=== PATIENT | female | born 1940 | race Caucasian/White ===

== ENCOUNTER 2021-12-02 10:26 | Outpatient (CLI) | payer MEDICARE, SELFPAY ==
--- NOTE | ~2021-12-02 | XR_ITS ---
EXAMINATION: XR foot LT standing 2V EXAM DATE: 12/02/2021 11:41 INDICATION: Left foot osteoarthritis. TECHNIQUE: Frontal and lateral projections of the left foot standing. Correlation is made to [facility] foot same date. FINDINGS: There is mild left 1st MTP osteoarthritis and polyarticular interphalangeal osteoarthritis , mild and hallux valgus. 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 Small to moderate posterior calcan eal spur. There are no acute fractures or dislocations identified. There is no subcutaneous gas. Th e soft tissue is unremarkable. There are no radiopaque foreign bodies. IMPRESSION: 1. Mild left forefoot polyarticular osteoarthritis. 2. Mild hallux valgus. Reviewed, dictated and finalized at location G. S CYLINDER FLANGER
--- NOTE | ~2021-12-02 | XR_ITS ---
EXAMINATION: XR hip BI 2V w AP pelvis EXAM DATE: 12/02/2021 11:41 INDICATION: Unspecified osteoarthritis, unspecified site. TECHNIQUE: Each hip imaged independently (separate right and also left hip) 'frog leg' and frontal p rojections for interpretation. Frontal projection pelvis. There is no prior study for comparison. FINDINGS: No radiographic evidence of hip avascular necrosis. There is moderate symmetric bilateral hip primary osteoarthritis. There are no acute fractures or dislocations identified. There is no sub cutaneous gas. The soft tissue is unremarkable. There are no radiopaque foreign bodies. IMPRESSION: Moderate bilateral hip osteoarthritis. Reviewed, dictated and finalized at location G. ER DUMPER
--- NOTE | ~2021-12-02 | XR_ITS ---
EXAMINATION: XR lumbar spine min 4V EXAM DATE: 12/02/2021 11:41 INDICATION: Unspecified osteoarthritis. TECHNIQUE: Lumber spine frontal, lateral, bilateral oblique projections. Coned down frontal and lat eral L5-S1 lumbar projections for interpretation. There is no prior study for comparison. FINDINGS: There is no spondylolysis. There is mild to moderate abdominal aortic arterial sclerosis, n o evidence of aneurysm. Mild to moderate lumbar facet arthropathy, mild disc disease. There are no ac lower sioux fractures identified. Sacrum, sacroiliac joints, sacral arcuate lines are intact. There are cl cystectomy clips. IMPRESSION: Mild to moderate lumbar facet arthropathy, mild disc disease. Reviewed, dictated and finalized at location G. R HAMMER OPERATOR
--- NOTE | ~2021-12-02 | XR_ITS ---
EXAMINATION: XR foot RT standing 2V EXAM DATE: 12/02/2021 11:41 INDICATION: Right foot osteoarthritis. TECHNIQUE: Frontal and lateral projections of the right foot weightbearing. Correlation is made to Contralateral foot same date FINDINGS: Moderate-sized posterior, tiny inferior calcaneal spur. There is mild hallux valgus and mi ld to moderate 1st MTP primary osteoarthritis. There is mild polyarticular interphalangeal primary os teoarthritis. No periosteal reaction or band of sclerosis to suggest subacute stress fracture. There are no bony erosions identified. IMPRESSION: 1. Mild to moderate right 1st MTP osteoarthritis. 2. Mild hallux valgus. 3. Calcaneal spurs. Reviewed, dictated and finalized at location G. AL CEO
--- NOTE | ~2021-12-02 | XR_ITS ---
EXAMINATION: XR hand BI arthritis min 3V EXAM DATE: 12/02/2021 11:41 INDICATION: Bilateral hand osteoarthritis. TECHNIQUE: Right hand frontal, lateral and oblique projections obtained and reviewed. Left hand fron sola, lateral and oblique projections obtained and reviewed. Catchers projection of both hands. There is no prior study for comparison. FINDINGS: Right hand: There is mild polyarticular interphalangeal, minimal metacarpophalangeal primary osteoart hritis. There is mild 1st carpometacarpal primary osteoarthritis. There are no bony erosions identif ied. There are no acute fractures identified. Left hand: There is mild polyarticular metacarpophalangeal and interphalangeal primary osteoarthritis . There is mild to moderate 1st carpometacarpal primary osteoarthritis. There are no acute fractures identified. There are no bony erosions identified. IMPRESSION: Polyarticular osteoarthritis with the left 1st carpometacarpal joint most affected Reviewed, dictated and finalized at location G. STRIAL MANUFACTURING TECHNICIAN IMPRESSION: Polyarticular osteoarthritis with the left 1st carpometacarpal join t most affected
[2021-12-02 11:12] LABS: Hematocrit 36.2 % (37.0-47.0); Mean Corpuscular HGB Conc 33.1 g/dl (32-36); Mean Corpuscular Hemoglobin 32.1 pg (26-34); Mean Corpuscular Volume 96.8 fl (80-100); Mean Platelet Volume 9.9 fl (7.4-10.4); Platelet Count Result 256 k/mm3 (150-375); Red Blood Count 3.74 M/mm3 (4.2-5.4); Red Cell Distribution Width 12.5 % (11.5-14.5); White Blood Count 7.2 K/mm3 (4.5-10.0)
[2021-12-02 11:43] LABS: Alanine Aminotransferase 15 U/L (4-35); Alkaline Phosphatase 68 U/L (38-126); Anion Gap 6 mmol/L (8-16); Aspartate Amino Transferase 27 U/L (14-36); Bilirubin,Total 0.4 mg/dL (0.2-1.3); Blood Urea Nitrogen 20 mg/dL (7-17); CRP < 0.5 mg/dL (<1.0); Calcium 9.6 mg/dL (8.4-10.2); Carbon Dioxide 29 mmol/L (22-30); Chloride 106 mmol/L (98-107); Estimated Glomerular Filt Rate > 60; Glucose 102 mg/dL (65-110); Potassium 4.1 mmol/L (3.4-5.0); Sodium 141 mmol/L (137-145)
[2021-12-02 11:49] LABS: Rheumatoid Factor < 8.6 IU/ML (<12)
[2021-12-02 12:18] LABS: Erythrocyte Sedimentation Rate 19 mm/hr (0-20)
[2021-12-07 13:45] LABS: Anti Cyclic Citrullinated Pept <16 Units (<20)
== END 2021-12-02 10:27 | disposition home or self-care (01) ==
PROVIDERS: PCP Internal Medicine; Visit Provider Internal Medicine
DX: M51.36 Other intervertebral disc degeneration, lumbar region (principal); M16.0 Bilateral primary osteoarthritis of hip; M19.042 Primary osteoarthritis, left hand; M19.072 Primary osteoarthritis, left ankle and foot; M20.12 Hallux valgus (acquired), left foot; M19.071 Primary osteoarthritis, right ankle and foot; M20.11 Hallux valgus (acquired), right foot; M77.31 Calcaneal spur, right foot
CPT/HCPCS: 36415; 72110; 73130; 73521; 73620; 80053; 85027; 85652; 86038; 86039; 86140; 86200; 86430

== ENCOUNTER → 2022-03-03 01:34 | Outpatient (CLI) | payer MEDICARE, SELFPAY ==
[2022-03-03 16:55] LABS: SARS-CoV-2 RNA PCR Negative
== END ==
PROVIDERS: PCP Internal Medicine; Visit Provider Internal Medicine
DX: J01.90 Acute sinusitis, unspecified (principal); Z20.822 Contact with and (suspected) exposure to COVID-19
CPT/HCPCS: C9803; U0003; U0005

== ENCOUNTER 2023-02-20 14:50 | Outpatient (CLI) | payer MEDICARE, SELFPAY ==
[2023-02-20 15:03] LABS: Hematocrit 39.3 % (37.0-47.0); Mean Corpuscular HGB Conc 33.1 g/dl (32-36); Mean Corpuscular Hemoglobin 32.7 pg (26-34); Mean Platelet Volume 9.9 fl (7.4-10.4); Platelet Count Result 233 k/mm3 (150-375); Red Blood Count 3.97 M/mm3 (4.2-5.4); Red Cell Distribution Width 11.4 % (11.5-14.5); White Blood Count 6.6 K/mm3 (4.5-10.0)
[2023-02-20 17:07] LABS: Alanine Aminotransferase 33 U/L (6-35); Albumin Level 4.2 g/dL (3.5-5.1); Alkaline Phosphatase 53 U/L (38-126); Anion Gap 3 mmol/L (8-16); Aspartate Amino Transferase 34 U/L (14-36); Bilirubin,Total 0.5 mg/dL (0.2-1.3); Blood Urea Nitrogen 17 mg/dL (7-17); CRP < 0.5 mg/dL (<1.0); Calcium 9.2 mg/dL (8.4-10.2); Carbon Dioxide 33 mmol/L (22-30); Chloride 104 mmol/L (98-107); Estimated Glomerular Filt Rate 60; Glucose 102 mg/dL (65-110); Potassium 4.3 mmol/L (3.4-5.0); Sodium 140 mmol/L (137-145)
[2023-02-20 17:52] LABS: Erythrocyte Sedimentation Rate 15 mm/hr (0-20)
[2023-02-20 18:40] LABS: Appearance Urine Clear (Clear); Bacteria Urine None Seen /hpf; Bilirubin Urine Negative (Negative); Blood Urine Negative (Negative); Color Urine Dark Yellow (Yellow); Glucose Urine UA Negative (Negative); Hyaline Casts Urine Present /lpf; Ketones Urine Negative (Negative); Leukocyte Esterase Ur 1+ LEU/UL (Negative); Nitrate Urine Negative (Negative); Non Pathogenic Casts 0-2; Protein Urine Negative (Negative); RBC Urine 0-2 /hpf (0-2); Specific Grav Ur 1.017 (1.001-1.035); Squamous Epithelial Cell Urine None seen /hpf (Few); Urobilinogen Urine 0.2 mg/dL (<2.0); WBC Urine 0-5 /hpf; pH Urine 5.5 (5.0-9.0)
[2023-02-20 18:45] LABS: Add Urine Microscopic? YES
== END 2023-02-20 14:51 | disposition home or self-care (01) ==
LOC: ANHLAB 14:52
PROVIDERS: Internal Medicine; PCP Internal Medicine; Visit Provider Internal Medicine Hematology & Oncology
DX: M19.90 Unspecified osteoarthritis, unspecified site (principal); M06.9 Rheumatoid arthritis, unspecified
CPT/HCPCS: 36415; 80053; 81001; 85027; 85652; 86140

== ENCOUNTER 2023-11-19 15:35 | Emergency (ER) | payer MEDICARE, SELFPAY ==
--- NOTE | ~2023-11-19 | XR_ITS ---
EXAM: XR knee RT min 4V DATE: 11/19/2023 19:00 HISTORY: fall . COMPARISON: None available. FINDINGS: Decreased mineralization. No fracture or dislocation. No lytic or blastic lesion. Mild tri compartmental osteoarthritis. No erosion or periosteal change. Soft tissues within normal limits. Sma ll volume left knee joint fluid. IMPRESSION: No acute osseous finding in the right knee. Reviewed, dictated and finalized at location K. COORDINATOR
--- NOTE | ~2023-11-19 | CT_ITS ---
EXAMINATION: CT lumbar spine wo con DATE: 11/19/2023 16:37 INDICATION: Low back pain post fall TECHNIQUE: Computed tomography (CT) of the lumbar spine was performed without intravenous contrast. A utomated exposure control and iterative reconstruction technique were employed. The dose-length produ ct was 660.47 mGy-cm. COMPARISON: None FINDINGS: Alignment is normal. Vertebral body heights are normal. No fracture. Disc heights appear normal with small amount of dystrophic disc calcification at L3-L4 through L5-S1. No central canal stenosis. Mild disc bulges from L1-L2 through L5-S1 with no significant central canal stenosis. This does however c ontributing to mild bilateral neural foraminal stenosis at L3-L4, L4-5 and on the right at L5-S1. Mul tilevel lumbar facet osteoarthritis, severe on the left at L5-S1 and moderate on the right at this le mel. Mild facet osteoarthritis throughout the remainder of the more cephalad lumbar and lower thoraci c spine. Cholecystectomy clips the gallbladder fossa. There are couple low-attenuation cysts at left kidney and additional parapelvic cysts at both kidneys. Multiple sigmoid diverticula without adjacent inflammatory stranding to suggest diverticulitis. IMPRESSION: 1. Mild lumbar spondylosis with no acute osseous abnormality. Reviewed, dictated and finalized at location A. TH CENTER ASSISTANT
--- NOTE | ~2023-11-19 | CT_ITS ---
EXAMINATION: CT cervical spine wo con DATE: 11/19/2023 16:35 INDICATION: Frequent falls with headache and lack of coordination TECHNIQUE: Computed tomography (CT) of the cervical spine was performed without intravenous contrast. Automated exposure control and iterative reconstruction technique were employed. The dose-length pro duct was 256.28 mGy-cm. COMPARISON: None FINDINGS: Severe osteoarthritis at the atlantoaxial articulation. There is reversal of the normal cervical lord osis. There is anterior fusion at C5-C6. Remaining vertebral body heights are normal. No acute fractu re. Severe disc height loss at C5 and moderate disc height loss at C6-C7. Posterior fusion at the osiris ateral C2-C3 facet joints. There is a disc extrusion at C3-C4 resulting in mild central canal stenosi s. There is additional mild central canal stenosis resulting from disc osteophyte complexes at C4-C5 and C6-C7. There is multilevel moderate to severe cervical facet and uncovertebral osteoarthritis whi ch continues to moderate neural foraminal stenosis on the left at C4-C5 and C6-C7 with mild stenosis at a few additional cervical neural foramina. Cervical soft tissues are unremarkable. Visualized uppe r lungs are clear. Median sternotomy. IMPRESSION: 1. Mild cervical kyphosis with severe spondylosis and anterior fusion at C5-C6. No acute osseous abno rmality. Reviewed, dictated and finalized at location A. H NUTRITIONAL MONITOR IMPRESSION: 1. Mild cervical kyphosis with severe spondylosis and anterior fusion at C5-C6. No acute osseous abnormality.
--- NOTE | ~2023-11-19 | CT_ITS ---
EXAMINATION: CT diagnostic chest wo con DATE: 11/19/2023 19:39 INDICATION: fall, left rib pain TECHNIQUE: Computed tomography (CT) of the chest was performed with 100 mL Omnipaque-350 intravenous contrast. Automated exposure control and iterative reconstruction technique were employed. The dose-l ength product was 284.08 mGy-cm. COMPARISON: X-ray left shoulder, same date. FINDINGS: CHEST: Thoracic aorta: Moderate arch calcification. Lung parenchyma and airways: Mild senescent change and dependent atelectasis, otherwise clear. Airway s patent. Thoracic inlet, axillae and chest wall: Status post thoracotomy. No thyroid or soft tissue mass. No a xillary lymphadenopathy. Left axillary soft tissue stranding. Mediastinum: No mass or lymphadenopathy. Heart and pericardium: Aortic valve replacement. Mitral annulus calcification. Coronary artery calcifications: Moderate. Pleura: No effusion or mass. Upper abdomen: Status post cholecystectomy. Thoracic bones: Minimally displaced left coracoid fracture. IMPRESSION: Minimally displaced left coracoid fracture. Left axillary edema/contusion. Otherwise, no acute traumatic finding in the chest. No rib fractures detected. Reviewed, dictated and finalized at location K. RICT PLANT SUPERINTENDENT
--- NOTE | ~2023-11-19 | XR_ITS ---
EXAM: XR hip LT 2V w AP pelvis DATE: 11/19/2023 19:00 HISTORY: fall BRUISING TO ANTERIOR KNEE . COMPARISON: 12/02/2021. FINDINGS: Decreased mineralization. No fracture or dislocation. No lytic or blastic lesion. Lumbar d egenerative disc disease. Moderate bilateral hip osteoarthritic arthritis, worse on the right. Pelvic enthesopathy. Pubic symphysis chondrocalcinosis. No erosion or periosteal change. Soft tissues withi n normal limits. IMPRESSION: No acute osseous finding in the pelvis or left hip. Reviewed, dictated and finalized at location K. R PRESS SUPERVISOR
--- NOTE | ~2023-11-19 | CT_ITS ---
EXAMINATION: CT brain wo con DATE: 11/19/2023 16:32 INDICATION: Headache post falls TECHNIQUE: Computed tomography (CT) of the head was performed without intravenous contrast. Sagittal and coronal reconstructions were performed. The mA was adjusted according to patient size. Iterative reconstruction technique was employed. The dose-length product was 605.33 mGy-cm. COMPARISON: Brain MR dated 10/17/2006 FINDINGS: No acute intracranial hemorrhage, acute infarction or abnormal extra axial fluid collection. Small ol d left cerebellar infarct. There is mild scattered white matter hypoattenuation consistent with chron ic small vessel ischemic disease. Symmetric prominence of the sulci consistent with mild to moderate age-appropriate diffuse cerebral volume loss. Ventricles are normal and symmetric. No mass/mass effec t. Changes of bilateral intraocular lens replacement. The orbits, paranasal sinuses and mastoid air c ells are normal. Intracranial calcified cerebral atherosclerosis is noted. IMPRESSION: 1. No acute intracranial process. 2. Small old left cerebellar infarct. 3. Age-related changes including mild to moderate diffuse volume loss and mild scattered white matter hypoattenuation consistent with chronic small vessel ischemic disease. Reviewed, dictated and finalized at location A. ANGE MECHANIC IMPRESSION: 1. No acute intracranial process. 2. Small old left cerebellar infarct. 3. Age-related changes including mild to moderate diffuse volume loss and mild scattered white matter hypoattenuation consistent with chronic small vessel isc hemic disease.
--- NOTE | ~2023-11-19 | XR_ITS ---
EXAM: XR shoulder LT min 2V DATE: 11/19/2023 19:00 HISTORY: fall, pain . COMPARISON: None available. FINDINGS: Decreased mineralization. No fracture or dislocation. No lytic or blastic lesion. Subacrom ial narrowing as can be seen with rotator cuff pathology. Distal left clavicular resection. Moderate glenohumeral osteoarthritis. No erosion or periosteal change. Soft tissues within normal limits. IMPRESSION: No acute osseous finding in the left shoulder. Reviewed, dictated and finalized at location K. OGICAL RISK ASSESSOR
[2023-11-19 15:43] VITALS: BP 109/82; PULSE 70; RESP 16; TEMP 36.6; O2SAT 100
--- NOTE | 2023-11-19 15:55 | ECG_ITS ---
Measurements Intervals [place] Rate: 64 P: [place]: 0 QRS: -12 QRSD: 102 T: 64 QT: 426 QTc: 440 Interpretive Statements SUPRAVENTRICULAR RHYTHM PREVIOUS ANTERIOR AND INFERIOR mYOCARDIAL INFARCTION , OF INDETERMINATE AGE [30 ms Q WAVE IN V1-V4] ABNORMAL ECG NO PREVIOUS ECG AVAILABLE FOR COMPARISON Electronically Signed On 11-19-2023 17:07:14 DIRECTOR OF PROPERTY MANAGEMENT by Lauro Pineda M.D.
--- NOTE | 2023-11-19 15:57 | ED.GENADULT ---
HPI - General Adult General Chief complaint: Fall <Surendra Tabares PA-C - Last Filed: 11/19/23 15:59> Stated complaint: MULTIPLE FALLS X1WK <Surendra Tabares PA-C - Last Filed: 11/19/23 15:59> Time Seen by Provider: 11/19/23 15:57 <Surendra Tabares PA-C - Last Filed: 11/19/23 15:59> Focused HPI: This is a an 83-year-old female with PMH of sciatica, arthritis, CAD who presents to the ED with chief complaint of frequent falls. Reports she has had 3 falls over the past week. Patient reports that she feels a little more off balance when she is bending over to reach for things. One of the fall she states that she may have stumbled while going into the bank. States that she feels she has to shuffle more and has been using her cane more but does not normally have to use this. Reports history of sciatica and has some bilateral lower extremity burning but usually no focal weakness. Endorses some low back, neck pain and mild headache. Denies fevers, chills, hip pain, knee pain, bowel or bladder dysfunction, saddle anesthesia. GENERAL: Well-appearing, well-nourished, and in no acute distress. HEAD: Normocephalic, atraumatic. CHEST: Clear to auscultation. No respiratory distress. HEART: Regular rate and rhythm. NEURO: Alert and oriented x3. 5/5 strength and sensation in the upper and lower extremities. Patient screened in triage and initial orders placed. Additional care and disposition to be based upon diagnostic testing and treatment. <Surendra Tabares PA-C - Last Filed: 11/19/23 15:59> Source: patient <Surendra Tabares PA-C - Last Filed: 11/19/23 15:59> Mode of arrival: ambulatory <LUZ MARINA Brown Last Filed: 11/19/23 15:59> Limitations: no limitations <LUZ MARINA Brown Last Filed: 11/19/23 15:59> History of Present Illness HPI narrative: 83-year-old female with a reported history of sciatica, arthritis, CAD presents to the ER for chief complaint of multiple recent falls. Patient presents with her niece who is at bedside. Patient states she fell 1 time 6 days ago, and to x3 days ago. States 6 days ago, she was walking into her bathroom when she fell into the bathroom because the door open to quickly. States she had her head on the wall her body on the toilet. She did not lose consciousness. States 3 days ago she felt she was coming at a bank and stepped off of a curb. States she landed on her left side and hit her ribs on the ground which is now causing her pain. She also states later that day, she bent over to pick something off the ground, lost her balance and fell to the ground. Again she did not hit her head or lose consciousness. She is reporting pain to her legs which is unchanged from her baseline sciatica pain, she describes it as burning. She is also reporting pain to her right knee without overlying bruise. States she has pain to her left shoulder, neck, left hip, and left anterior lateral chest wall beneath her breast. She denies dizziness or lightheadedness prior to these falls, chest pain or shortness of breath, cough or congestion, nausea vomiting or diarrhea, abdominal pain. She took Tylenol earlier with improvement. She lives at home alone and has been ambulating with a cane since these recent falls. Patient's niece who is present at bedside states the patient recently got a new glasses prescription, however she advised the patient to switch to her old glasses and since then has not had any falls. Denies saddle anesthesia, bowel or bladder incontinence or retention, fever, chills, saddle anesthesia. Denies vision changes, focal numbness or weakness, melena or hematochezia. <Katia Merritt PA-C - Last Filed: 11/19/23 21:47> Related Data Home medications: Home Medications Medication Instructions Recorded Confirmed alprazolam 1 mg tablet 1 mg PO BID 12/02/21 09/04/23 aspirin 81 mg chewable tablet 81 mg PO DAILY 12/02/21 09/04/23 atorvastatin 80 mg tablet 80 mg P
[2023-11-19] MEDS: ACETAMINOPHEN 325 MG TABLET 650 MG PO (16:07)
[2023-11-19 16:17] LABS: Basophils Absolute Auto 0.1 K/mm3 (0.0-0.1); Basophils Percent Auto 0.9 % (0.2-1.2); Eosinophils Absolute Auto 0.1 K/mm3 (0-0.3); Eosinophils Percent Auto 2.5 % (0-4.4); Hematocrit 34.3 % (37.0-47.0); Hemoglobin 10.9 g/dL (12.0-15.0); Immature Granulocyte Absolute 0.01 K/mm3 (0.00-0.031); Immature Granulocyte Percent A 0.2 % (0-0.5); Lymphocytes Absolute Auto 1.67 K/mm3 (0.9-3.2); Lymphocytes Percent Auto 31.6 % (18.3-44.2); Mean Corpuscular HGB Conc 31.8 g/dl (32-36); Mean Corpuscular Hemoglobin 32.2 pg (26-34); Mean Corpuscular Volume 101.5 fl (80-100); Mean Platelet Volume 9.9 fl (7.4-10.4); Monocytes Absolute Auto 0.6 K/mm3 (0.1-0.6); Monocytes Percent Auto 12.1 % (2.6-8.5); Neutrophils Absolute Auto 2.8 K/mm3 (1.3-6.7); Neutrophils Percent Auto 52.7 % (45.5-73.1); Platelet Count Result 195 k/mm3 (150-375); Red Blood Count 3.38 M/mm3 (4.2-5.4); Red Cell Distribution Width 11.9 % (11.5-14.5); White Blood Count 5.3 K/mm3 (4.5-10.0)
[2023-11-19 16:27] LABS: Appearance Urine Clear (Clear); Bacteria Urine None Seen /hpf; Bilirubin Urine Negative (Negative); Blood Urine Negative (Negative); Color Urine Yellow (Yellow); Glucose Urine UA Negative (Negative); Ketones Urine Negative (Negative); Leukocyte Esterase Ur 1+ LEU/UL (Negative); Need Manual Microscopic Reviewed; Nitrate Urine Negative (Negative); Non Pathogenic Casts 0-2; Protein Urine Trace mg/dL (Negative); RBC Urine 0-2 /hpf (0-2); Specific Grav Ur 1.018 (1.001-1.035); Squamous Epithelial Cell Urine None seen /hpf (Few); Urobilinogen Urine 0.2 mg/dL (<2.0); WBC Urine 0-5 /hpf; pH Urine 5.5 (5.0-9.0)
[2023-11-19 16:28] LABS: Alanine Aminotransferase 18 U/L (6-35); Albumin Level 3.6 g/dL (3.5-5.1); Alkaline Phosphatase 57 U/L (38-126); Anion Gap 5 mmol/L (8-16); Aspartate Amino Transferase 28 U/L (14-36); Bilirubin,Total 0.3 mg/dL (0.2-1.3); Blood Urea Nitrogen 18 mg/dL (7-17); Calcium 9.1 mg/dL (8.4-10.2); Carbon Dioxide 30 mmol/L (22-30); Chloride 107 mmol/L (98-107); Estimated Glomerular Filt Rate 60; Glucose 100 mg/dL (65-110); Potassium 3.8 mmol/L (3.4-5.0); Sodium 142 mmol/L (137-145)
[2023-11-19 16:28] LABS: Add Urine Microscopic? YES
[2023-11-19 16:51] VITALS: BP 154/48; PULSE 64; RESP 17; O2SAT 100
[2023-11-19 19:50] VITALS: BP 165/59; PULSE 67; RESP 15; O2SAT 100
[2023-11-19] MEDS: oxyCODONE HCL (*CRX) 2.5 MG TAB IR PO (21:56)
== END 2023-11-19 22:06 | disposition home or self-care (01) ==
PROVIDERS: Physician Assistant; Emergency Provider Physician Assistant; PCP Internal Medicine
DX: S42.132A Displaced fracture of coracoid process, left shoulder, initial encounter for closed fracture (principal); D64.9 Anemia, unspecified; S80.01XA Contusion of right knee, initial encounter; S79.912A Unspecified injury of left hip, initial encounter; I25.10 Atherosclerotic heart disease of native coronary artery without angina pectoris; I10 Essential (primary) hypertension; M81.0 Age-related osteoporosis without current pathological fracture; M19.90 Unspecified osteoarthritis, unspecified site; Z86.73 Personal history of transient ischemic attack (TIA), and cerebral infarction without residual deficits; M47.816 Spondylosis without myelopathy or radiculopathy, lumbar region; M47.812 Spondylosis without myelopathy or radiculopathy, cervical region; M43.22 Fusion of spine, cervical region; R94.31 Abnormal electrocardiogram [ECG] [EKG]; W10.1XXA Fall (on)(from) sidewalk curb, initial encounter; W01.198A Fall on same level from slipping, tripping and stumbling with subsequent striking against other object, initial encounter; W18.39XA Other fall on same level, initial encounter
CPT/HCPCS: 36415; 70450; 71250; 72125; 72131; 73030; 73502; 73564; 80053; 81001; 85025; 93005; 99284; A4565; A9270

== ENCOUNTER 2023-12-23 12:30 | Outpatient (CLI) | payer MEDICARE, SELFPAY ==
--- NOTE | ~2023-12-23 | XR_ITS ---
XR shoulder LT min 2V DATE: 12/23/2023 12:52 INDICATION: Coracoid process fracture TECHNIQUE: 4 views of left shoulder COMPARISON: November 19, 2023 left shoulder November 19, 2023 CT chest FINDINGS: Coracoid process fracture is noted, demonstrated to better advantage on November 19, 2023 CT chest examination. No other fracture or dislocation is evident. Osteopenia. Left glenohumeral osteoarthritis including moderate spurring of the left humeral head. Status post resection lateral aspect of the left clavicle.. Degenerative changes of the lower cervical spine. Degenerative spurring and mild levoscoliosis of the thoracic spine. Status post sternotomy and cardiac valve replacement. Aortic calcification. IMPRESSION: Coracoid process fracture of left scapula Osteopenia Bilateral humeral osteoarthritis Reviewed, dictated and finalized at location A.
== END 2023-12-23 12:31 | disposition home or self-care (01) ==
PROVIDERS: PCP Internal Medicine; Visit Provider Orthopaedic Surgery
DX: S42.132D Displaced fracture of coracoid process, left shoulder, subsequent encounter for fracture with routine healing (principal); X58.XXXD Exposure to other specified factors, subsequent encounter; M85.812 Other specified disorders of bone density and structure, left shoulder; M19.022 Primary osteoarthritis, left elbow; M19.021 Primary osteoarthritis, right elbow
CPT/HCPCS: 73030

== ENCOUNTER 2025-06-02 11:06 | Emergency (ER) | payer MEDICARE, SELFPAY ==
--- NOTE | ~2025-06-02 | XR_ITS ---
EXAM/ PROCEDURE: XR elbow RT 2V, XR humerus RT - 06/02/2025 12:45 CDT HISTORY: 84 years old Female with fall, r elbow pain, FELL SAT. COMPARISON: None available TECHNIQUE: Three view(s) FINDINGS/ IMPRESSION: There are no fractures or dislocations.Joint spaces are within normal limits. Reviewed, dictated and finalized at location A.
--- NOTE | ~2025-06-02 | XR_ITS ---
EXAMINATION: XR ankle RT min 3V DATE: 06/02/2025 12:52 INDICATION: Fall. Right ankle injury TECHNIQUE: 4 images of the right ankle were obtained COMPARISON: None. FINDINGS: Soft tissue swelling about the right ankle. Talar dome is unremarkable. No fracture. No dislocation. Small posterior calcaneal spur. There are four less than 8mm sclerotic densities in the intramedullary cavity of the distal right tibia. IMPRESSION: 1. No acute fracture identified. 2. Soft tissue swelling about the right ankle. If symptoms persist or worsen, consider a short-term follow-up study or additional imaging for further assessment. Reviewed, dictated and finalized at location A. IMPRESSION: 1. No acute fracture identified. 2. Soft tissue swelling about the right ankle. If symptoms persist or worsen, consider a short-term follow-up study or additio nal imaging for further assessment.
--- NOTE | ~2025-06-02 | CT_ITS ---
EXAMINATION: CT cervical spine wo con DATE: 06/02/2025 12:31 INDICATION: Fall. Lower neck pain TECHNIQUE: Computed tomography (CT) of the cervical spine was performed without intravenous contrast. The dose-length product was 215.39 mGy-cm. COMPARISON: 11/19/2023 FINDINGS: Bones appear osteopenic, unchanged. Reversal of the normal cervical lordosis centered at the C4-C5 level, unchanged. Extensive joint space narrowing at the C4-C5, C5-C6 C6-C7 levels similar to the study from 11/19/2023. No prevertebral soft tissue swelling. Predental space is within normal limits. Lateral dental intervals are within normal limits. Evaluation of the spinal canal contents and bilateral neuroforamen is limited due to CT technique. IMPRESSION: 1. No compression fracture in the cervical spine. 2. Reversal of the normal cervical lordosis centered at C4-C5 level, unchanged. 3. Multilevel degenerative change in the cervical spine similar to the study from 11/19/2023 If symptoms persist or worsen, consider an MRI of the cervical spine for further assessment. Reviewed, dictated and finalized at location A. IMPRESSION: 1. No compression fracture in the cervical spine. 2. Reversal of the normal cervical lordosis centered at C4-C5 level, unchanged. 3. Multilevel degenerative change in the cervical spine similar to the study fr om 11/19/2023 If symptoms persist or worsen, consider an MRI of the cervical spine for furthe r assessment.
--- NOTE | ~2025-06-02 | XR_ITS ---
Clinical history:Fall. EXAM:X-ray tibia-fibula right 2 views TECHNIQUE:2 images of the right tibia and right fibula were obtained. Comparisons:None FINDINGS: No fracture. No dislocation. There are 4 less than 8 mm sclerotic lesions in the intramedullary cavity of the distal right tibia. Soft tissue swelling about the right tibia and right fibula. IMPRESSION: No fracture. If symptoms persist or worsen, consider a short-term follow-up study or additional imaging for further assessment. Reviewed, dictated and finalized at location A. IMPRESSION: No fracture. If symptoms persist or worsen, consider a short-term follow-up study or additio nal imaging for further assessment.
--- NOTE | ~2025-06-02 | CT_ITS ---
EXAMINATION: CT brain wo con DATE: 06/02/2025 12:31 INDICATION: Fall. Hit head. TECHNIQUE: Computed tomography (CT) of the head was performed without intravenous contrast. The dose-length product was 605.33 mGy-cm. COMPARISON: 11/19/2023 FINDINGS: No acute intracranial hemorrhage. No mass effect. No midline shift. No hydrocephalus. No skull fracture. Visualized paranasal sinuses and mastoid air cells are clear. Mild cerebral atrophy appropriate for the patient's age. There are several low density regions scattered throughout the periventricular and deep white matter which are favored to represent chronic ischemic white matter change. IMPRESSION: 1. No acute intracranial hemorrhage. No mass effect. Reviewed, dictated and finalized at location A.
[2025-06-02 11:30] VITALS: BP 137/63; PULSE 86; RESP 16; TEMP 36.3; O2SAT 98
--- OUTSIDE RECORDS SUMMARY | 2025-06-02 11:42 | XMS_ITS | Clinical Summary ---
Author Organization [facility] Address [address] [place] [address] Phone Care Team Providers Care Balance Wheel Screw Hole Driller Name Role Phone Wilfrido Cordova MD Primary Care Provider Active Problems Problem Noted Date Diagnosed Date Age-related osteoporosis wit hout current pathological fracture Social History Tobacco Use Types Packs/Day Years Used Date Smoking Tobacco: Never Assessed Comments Unknown Sex and Gender Information Value Date Recorded Sex Assigned at Not on file Legal Sex Female 3:08 PM HOME PARAPROFESSIONAL Gender Identity Not on file Sexual Orientation Not on file Last Filed Vital Signs Vital Sign Reading Time Taken Comments Blood Pressure 166/77 01/27/2025 11:13 AM CDT Pulse 71 01/27/2025 11:13 AM CDT Temperature 36.5 C (97.7 F) 01/27/2025 11:13 AM CDT Respiratory Rate 16 01/27/2025 11:13 AM CDT Oxygen Saturation 100% 01/27/2025 11:13 AM CDT Inhaled Oxygen Concentration - - Weight - - Height - - Body Mass Index - - Plan of Treatment Health Maintenance Due Date Last Done Comments DEXA Bone Density 1940 Hepatitis C Virus (HCV) Screening 1940 SARS-COV-2 Immunization ( season) 2024 08/31/2021, 01/04/2021, 01/04/2021, Additional history exists Influenza Immunization (#1) 2025 10/0 05/2024, 07/31/2023, 08/18/2022, Additional history exists Pneumococcal Immunization (50+ years) Completed 03/24/2019, 08/01/2012 Respiratory Syncytial Virus (RSV) Immunization (Adult) Completed 09/27/2023 Zoster Immunization Completed 01/28/2024, DTaP/Tdap/Td Immunization Discontinued 04/16/2024 TdaP Immunization Completed 04/16/2024 Hepatitis B Immunization Aged Out No longer eligible based on patient's age to complete this topic Human Papillomavirus (HPV) Immunization Aged Out No longer eligible based on patient's age to complete this topic Meningococcal Immunization (ACWY) Aged Out No longer eligible based on patient's age to complete this topic Rotavirus Immunization Aged Out No lo nger eligible based on patient's age to complete this topic Insurance MEDICARE [facility] Care Teams Balance Wheel Screw Hole Driller Relationship Specialty Start Date End Date Wilfrido Cordova MD [address] [place] [address] PCP - General Internal Medicine 11/10/21
--- NOTE | 2025-06-02 12:13 | ED.FALL ---
HPI - Fall General Chief Complaint: Back Pain/Injury Stated Complaint: fall 05/30, back pain Time Seen by Provider: 06/02/25 11:59 History of Present Illness HPI Narrative: Seen 84-year-old female with history of valvular disease status post valve replacement on Plavix and Xarelto who presents to the ED for a fall. Patient states that 3 days ago, she tripped on her flip-flops and fell backwards hitting her upper back and head and right elbow. She denies loss conscious. She did not tell any family members until today prompting them to bring her to the ED. She does report right elbow pain, right ankle pain at this time. Also reports upper back and lower neck pain as well as occipital headache. Denies changes in vision. Related Data Home Medications ?Medication ?Instructions ?Recorded ?Confirmed ?Last Taken ?Type alprazolam 1 mg tablet 1 mg PO BID 12/02/21 02/01/24 Unknown History aspirin 81 mg chewable tablet 81 mg PO DAILY 12/02/21 02/01/24 Unknown History atorvastatin 80 mg tablet 80 mg PO DAILY 12/02/21 02/01/24 Unknown History clopidogrel 75 mg tablet 75 mg PO DAILY 12/02/21 02/01/24 Unknown History denosumab 60 mg/mL subcutaneous 60 mg subcut [id number] 12/02/21 02/01/24 Unknown History syringe (Prolia) metoprolol succinate 50 mg 50 mg PO DAILY 12/02/21 02/01/24 Unknown History tablet,extended release 24 hr nifedipine 60 mg tablet,extended 60 mg PO DAILY 12/02/21 02/01/24 Unknown History release nitroglycerin 0.4 mg sublingual 0.4 mg sublingual Q5M PRN 12/02/21 02/01/24 Unknown History tablet omeprazole 40 mg capsule,delayed 40 mg PO DAILY 12/02/21 02/01/24 Unknown History release oxycodone-acetaminophen 5 mg-325 1 tablet PO Q6H PRN 12/02/21 02/01/24 Unknown History mg tablet sertraline 25 mg tablet 25 mg PO DAILY 12/02/21 02/01/24 Unknown History Allergies Allergy/AdvReac Type Severity Reaction Status Date / Time No Known Allergies Allergy Verified 06/02/25 11:37 Review of Systems Review of Systems: Gen.: Denies fevers or chills Eyes: Denies eye pain or visual change ENT: Denies congestion Respiratory: Denies shortness of breath or cough CV: Denies chest pain or palpitations GI: Denies abdominal pain nausea, emesis or diarrhea denies burning, urgency, frequency or hematuria Musculoskeletal: As per HPI Neuro: Denies numbness, tingling, weakness or focal weakness Skin: Denies rash Except as documented, all other systems reviewed and negative FORMERLY [facility], [facility]–1983 Past Medical History Medical History Bilateral hand pain Age-related osteoporosis without current pathological fracture Degenerative joint disease (DJD) of lumbar spine Inflammatory arthritis Stroke Osteoporosis Hypertension Coronary artery disease Arthritis Anxiety Surgical History Surgical History No pertinent past surgical history Family History Family History Father Hypertension Depression Sibling Cancer Diabetes mellitus Heart disease Social History Social History Smoking status: Never smoker Alcohol intake: never Substance use: never Substance use type: does not use Do You Feel Safe in your Home?: Yes Lack of Transportation: No Lack of Food: Never True Current Housing: Decline to Answer Concerned About Future Housing: No Difficulty Paying Gas/Electric Bills: No Difficulty Paying for Meds: No Currently Unemployed: No Education: Trade/Vocational Certificate Difficulty w/ Childcare or Family Care: No Living arrangements: with family Occupation/Education: retired Gender identity (if verbalized by the patient): Female Exam Narrative: APPEARANCE: No acute distress, nontoxic, resting in bed EYES: EOMI HEENT: Normocephalic, atraumatic, OMM Neck: C-collar in place. Tenderness to palpation to the lower C6/C7. No step-offs or deformities. RESPIRATORY: No respiratory distress Clear to auscultation bilaterally with no rhonchi wheezing or rales. CARDIOVASCULAR: Regular rate and rhythm without murmurs rubs or gallops. ABDOMINAL: Soft, nontender, nondistended, no rebound or guarding MUSCULOSKELETAL: Ecchymosis over the right elbow with mild tenderness to palpation. Full range of motion. Tenderness to the mid right humeral shaft. NEURO: Awake and alert. Following commands, speech normal, no focal deficits SKIN:: Warm, dry. No rashes lesions or abrasions PSYCHIATRIC: Normal affect/mood, Course Vital Signs Vital signs: Vital Signs Temperature 97.3 F L 06/02/25 11:30 Pulse Rate 86 06/02/25 11:30 Respiratory Rate 16 06/02/25 11:30 Blood Pressure 137/63 06/02/25 11:30 Pulse Oximetry 98 06/02/25 11:30 Oxygen Delivery Room Air 06/02/25 11:30 Temperature 97.3 F L 06/02/25 11:30 Pulse Rate 86 06/02/25 11:30 Respiratory Rate 16 06/02/25 11:30 Blood Pressure 137/63 06/02/25 11:30 Pulse Oximetry 98 06/02/25 11:30 Oxygen Delivery Room Air 06/02/25 11:30 MDM - Fall MDM Narrative Medical decision making narrative: 84-year-old female who presented to the ED for a fall 3 days ago. Vital signs stable. C-collar was placed arrival. She had tenderness over the lower cervical spine in the right elbow. CT head and cervical spine for acute process. X-rays right elbow and right ankle and right humerus showed no acute fractures. Patient's C-collar was cleared. Patient was educated not wearing flip-flops around the house. She was advised to follow-up with her PCP in the next week for evaluation. Patient was agreeable to plan. Given return precautions. Differential Diagnosis Differential diagnosis: Likely other (Contusion, fracture, sprain, CVA) Lab Data 06/02/25 12:20 06/02/25 12:20 Labs: Lab Results 06/02/25 Range/Units 12:20 WBC 5.7 (4.5-10.0) K/mm3 RBC 3.61 L (4.2-5.4) M/mm3 Hgb 11.7 L (12.0-15.0) g/dL Hct 35.6 L (37.0-47.0) % MCV 98.6 (80-100) fl MCH 32.4 (26-34) pg MCHC 32.9 (32-36) g/dl RDW 12.1 (11.5-14.5) % Plt Count 234 (150-375) k/mm3 MPV 9.5 (7.4-10.4) fl Immature Gran % (Auto) 0.2 (0-0.5) % Neut % (Auto) 58.2 (45.5-73.1) % Lymph % (Auto) 27.4 (18.3-44.2) % [place] % (Auto) 11.2 H (2.6-8.5) % Eos % (Auto) 1.8 (0-4.4) % Baso % (Auto) 1.2 (0.2-1.2) % Lymph # (Auto) 1.56 (0.9-3.2) K/mm3 [place] # (Auto) 0.6 (0.1-0.6) K/mm3 Eos # (Auto) 0.1 (0-0.3) K/mm3 Baso # (Auto) 0.1 (0.0-0.1) K/mm3 Abs Immat Gran (auto) 0.01 (0.00-0.031) K/mm3 Absolute Neuts (auto) 3.3 (1.3-6.7) K/mm3 Absolute Nucleated RBC 0.000 (0.0-0.012) K/mm3 Nucleated RBC % 0.0 (0.0-0.2) % PT 12.9 (11.1-14.7) Seconds INR 1.0 Sodium 138 (137-145) mmol/L Potassium 4.7 (3.4-5.0) mmol/L Chloride 103 (98-107) mmol/L Carbon Dioxide 30 (22-30) mmol/L Anion Gap 5 (4-12) mmol/L BUN 21 H (7-17) mg/dL Creatinine 0.95 (0.7-1.0) mg/dL Estim Creat Clear Calc Not Reportable Estimated GFR 56 L (59 - ) Glucose 101 (65-110) mg/dL Calcium 10.0 (8.4-10.2) mg/dL Total Bilirubin 0.4 (0.2-1.3) mg/dL AST 37 H (14-36) U/L ALT 26 (6-35) U/L Alkaline Phosphatase 47 (38-126) U/L Total Protein 6.5 (6.3-8.2) g/dL Albumin 4.1 (3.5-5.1) g/dL Imaging Data Radiologist's impression: Impressions Head CT 06/02/25 12:36 IMPRESSION: 1. No acute intracranial hemorrhage. No mass effect. Cervical Spine CT 06/02/25 12:45 IMPRESSION: 1. No compression fracture in the cervical spine. 2. Reversal of the normal cervical lordosis centered at C4-C5 level, unchanged. 3. Multilevel degenerative change in the cervical spine similar to the study from 11/19/2023 If symptoms persist or worsen, consider an MRI of the cervical spine for further assessment. Ankle X-Ray 06/02/25 12:54 IMPRESSION: 1. No acute fracture identified. 2. Soft tissue swelling about the right ankle. If symptoms persist or worsen, consider a short-term follow-up study or additional imaging for further assessment. Tibia/Fibula X-Ray 06/02/25 12:55 IMPRESSION: No fracture. If symptoms persist or worsen, consider a short-term follow-up study or additional imaging for further assessment. Discharge Plan Discharge Clinical Impression: Contusion of thoracic spine Contusion of elbow, right Qualifiers: Encounter type: initial encounter Qualified Code(s): S50.01XA - Contusion of right elbow, initial encounter Fall Qualifiers: Encounter type: initial encounter Qualified Code(s): W19.XXXA - Unspecified fall, initial encounter Patient Disposition: Home Condition: Stable Instructions: Antibiotic Form, Fall Prevention for Older Adults (ED), Contusion in Adults (ED) Additional Instructions: Apply ice to the bruises. Follow-up with the PCP in the next week for re-evaluation. He may take Tylenol for pain. Return to ED for any new or worsening symptoms. Patient Language: Barbadian Prescriptions: No Action hydroxychloroquine [Plaquenil] 200 mg tablet 400 mg PO DAILY Qty: 180 1RF prednisone 2.5 mg tablet 2.5 mg PO DAILY Qty: 40 0RF Rx Instructions: take 2 tabs BID for 5 days, 1 tab BID for 5 days, 1 tab qd for 5 days and then 1 tab qod for 5 doses and stop alprazolam 1 mg tablet 1 mg PO BID aspirin 81 mg tablet,chewable 81 mg PO DAILY atorvastatin 80 mg tablet 80 mg PO DAILY clopidogrel 75 mg tablet 75 mg PO DAILY metoprolol succinate 50 mg tablet extended release 24 hr 50 mg PO DAILY nifedipine 60 mg tablet extended release 60 mg PO DAILY nitroglycerin 0.4 mg tablet, sublingual 0.4 mg sublingual Q5M PRN Rx Instructions: do not exceed 3 doses per episode omeprazole 40 mg capsule,delayed release(DR/EC) 40 mg PO DAILY oxycodone-acetaminophen 5-325 mg tablet 1 tablet PO Q6H PRN Prolia 60 mg/mL syringe 60 mg subcut [id number] sertraline 25 mg tablet 25 mg PO DAILY oxycodone 5 mg tablet 2.5 mg PO Q6H PRN (Reason: pain) Qty: 14 0RF Follow-up/Referrals: PHYSICIAN NOT ON STAFF,NONSTAFF [Primary Care Provider]
--- OUTSIDE RECORDS SUMMARY | 2025-06-02 12:17 | XMS_ITS | Clinical Summary ---
Author Organization [facility] Address [address] [place] [address] Phone Care Team Providers Care Intern Product Marketing Manager Name Role Phone Wilfrido Cordova MD Primary Care Provider Active Problems Problem Noted Date Diagnosed Date Age-related osteoporosis wit hout current pathological fracture Social History Tobacco Use Types Packs/Day Years Used Date Smoking Tobacco: Never Assessed Comments Unknown Sex and Gender Information Value Date Recorded Sex Assigned at Not on file Legal Sex Female 3:08 PM [employer] Gender Identity Not on file Sexual Orientation [...] age to complete this topic Insurance MEDICARE [facility] Care Teams Intern Product Marketing Manager Relationship Specialty Start Date End Date Wilfrido Cordova MD [address] [place] [address] PCP - General Internal Medicine 11/10/21
[2025-06-02 12:37] LABS: Alanine Aminotransferase 26 U/L (6-35); Albumin Level 4.1 g/dL (3.5-5.1); Alkaline Phosphatase 47 U/L (38-126); Anion Gap 5 mmol/L (4-12); Aspartate Amino Transferase 37 U/L (14-36); Bilirubin,Total 0.4 mg/dL (0.2-1.3); Blood Urea Nitrogen 21 mg/dL (7-17); Calcium 10.0 mg/dL (8.4-10.2); Carbon Dioxide 30 mmol/L (22-30); Chloride 103 mmol/L (98-107); Estimated Glomerular Filt Rate 56; Glucose 101 mg/dL (65-110); Potassium 4.7 mmol/L (3.4-5.0); Sodium 138 mmol/L (137-145); Total Protein 6.5 g/dL (6.3-8.2)
[2025-06-02 12:44] LABS: Hematocrit 35.6 % (37.0-47.0); Hemoglobin 11.7 g/dL (12.0-15.0); Immature Granulocyte Percent A 0.2 % (0-0.5); Lymphocytes Absolute Auto 1.56 K/mm3 (0.9-3.2); Mean Corpuscular HGB Conc 32.9 g/dl (32-36); Mean Corpuscular Hemoglobin 32.4 pg (26-34); Mean Corpuscular Volume 98.6 fl (80-100); Nucleated Red Blood Cells Absolute Auto 0.000 K/mm3 (0.0-0.012); Nucleated Red Blood Cells Perc 0.0 % (0.0-0.2); Platelet Count Result 234 k/mm3 (150-375); Red Blood Count 3.61 M/mm3 (4.2-5.4); White Blood Count 5.7 K/mm3 (4.5-10.0)
--- NOTE | 2025-06-02 13:25 | PC.NURSE ---
C-collar removed by EDP
[2025-06-02 13:50] LABS: INR 1.0; Prothrombin Time 12.9 Seconds (11.1-14.7)
== END 2025-06-02 13:44 | disposition home or self-care (01) ==
PROVIDERS: Emergency Provider Student in an Organized Health Care Education/Training Program
DX: S50.01XA Contusion of right elbow, initial encounter (principal); S20.229A Contusion of unspecified back wall of thorax, initial encounter; I38 Endocarditis, valve unspecified; I10 Essential (primary) hypertension; I25.10 Atherosclerotic heart disease of native coronary artery without angina pectoris; M81.0 Age-related osteoporosis without current pathological fracture; M19.90 Unspecified osteoarthritis, unspecified site; M47.816 Spondylosis without myelopathy or radiculopathy, lumbar region; F41.9 Anxiety disorder, unspecified; Z95.2 Presence of prosthetic heart valve; Z86.73 Personal history of transient ischemic attack (TIA), and cerebral infarction without residual deficits; Z79.02 Long term (current) use of antithrombotics/antiplatelets; Z79.01 Long term (current) use of anticoagulants; Z79.899 Other long term (current) drug therapy; Z79.82 Long term (current) use of aspirin; W01.0XXA Fall on same level from slipping, tripping and stumbling without subsequent striking against object, initial encounter
CPT/HCPCS: 36415; 70450; 72125; 73060; 73070; 73590; 73610; 80053; 85025; 85610; 99284; L0140